=== PATIENT | male | born 1970 | race African-American/Black ===

== ENCOUNTER 2017-04-26 21:56 | Emergency (ER) | payer OTHER ==
[~2017-04-26 21:56] MED LIST: ADVAIR250 INH; APRES10B PO; COMBIVENT INH; DULERA; FESO4; FLEX PO; FOLIC; GLUCPH PO; HYDROCHLOROT25 MG PO; KDUR20 PO; KLOR-CON 1010 MEQ PO; KLOR-CON PO; MONODOX100 MG PO; MUCINEX1200 MG PO; MULTIPLE VIT; NORCO1 TA1; NORCO1 TA2 PO; NORV10 PO; P10; PR25 PO; PRIN10 PO; PROAIR HFA INH; PROVHFA INH; SINGULAIR1 PO; SPIRIVA INH; TESSALON200 MG PO; VITAMIN D1000 UNI1 PO; ZESTRIL20 MG PO; ZYRTEC ALLGY10 MG PO
[2017-04-26 23:47] LABS: BASOPHILS 0.5 %; BASOPHILS ABSOLUTE 0.03 10/3/uL (0.0-0.16); EOSINOPHILS 8.8 %; EOSINOPHILS ABSOLUTE 0.52 10/3/uL (0.0-0.53); HEMATOCRIT 33.5 % (40.0-51.0); HEMOGLOBIN 10.9 g/dL (13.6-17.8); MANUAL DIFF NO %; MEAN CORPUS HGB CONC 32.5 g/dL (32.0-36.0); MEAN CORPUSCULAR HEMOGLOB 25.2 pg (26.0-34.0); MEAN CORPUSCULAR VOLUME 77.4 fL (80-100); MEAN PLATELET VOLUME 9.5 fL (9.2-13.0); MONOCYTES 3.7 %; MONOCYTES ABSOLUTE 0.22 10/3/uL (0.21-1.20); NEUTROPHILS ABSOLUTE 3.12 10/3/uL (2.02-8.40); PLATELET COUNT 263 10/3/uL (150-400); RBC DISTRIBUTION WIDTH 18.9 % (12.0-16.0); RED CELL COUNT 4.33 10/6/uL (4.7-6.1); WHITE BLOOD CELLS 5.9 10/3/uL (4.5-10.5)
[2017-04-27] LABS: A/G RATIO 0.8 (0.7-1.9); ALBUMIN 3.1 G/DL (3.5-5.0); ALKALINE PHOSPHATASE 92 U/L (45-117); CALCIUM, SERUM 8.6 MG/DL (8.5-10.4); CHLORIDE, SERUM 107 MMOL/L (96-112); CO2 (CARBON DIOXIDE) 27 MMOL/L (24-34); CREATININE 1.11 MG/DL (0.70-1.30); GFR AFRICAN AMERICAN 93 ML/MIN (>=60); GFR NON AFRICAN AMERICAN 80 ML/MIN (>=60); GLOBULIN 3.8 G/DL (2.5-4.1); GLUCOSE, SERUM 91 MG/DL (60-99); POTASSIUM, SERUM 3.2 MMOL/L (3.5-5.3); SGOT(AST) 33 U/L (5-40); SGPT(ALT) 32 U/L (5-65); SODIUM, SERUM 140 MMOL/L (135-148); TOTAL PROTEIN 6.9 G/DL (6.0-8.5)
[2017-04-27 00:01] LABS: BUN (BLOOD UREA NITROGEN) 15 MG/DL (6-23); TOTAL BILIRUBIN < 0.1 MG/DL (0-1.2)
== END 2017-04-27 02:43 | disposition home or self-care (01) ==
LOC: ER 21:56
PROVIDERS: Specialist
DX: G89.3 Neoplasm related pain (acute) (chronic) (principal); R10.33 Periumbilical pain; C18.1 Malignant neoplasm of appendix; C78.7 Secondary malignant neoplasm of liver and intrahepatic bile duct; J45.909 Unspecified asthma, uncomplicated; I10 Essential (primary) hypertension; E11.9 Type 2 diabetes mellitus without complications; Z79.84 Long term (current) use of oral hypoglycemic drugs; Z79.899 Other long term (current) drug therapy
CPT/HCPCS: 74176; 80053; 83690; 85025; 96374; 96375; 99284; A9270-GY; J2405; J3010